=== PATIENT | female | born 1975 | race Caucasian/White ===

== ENCOUNTER → 2025-01-10 | Outpatient (CLI) | payer MEDICAID, SELFPAY ==
--- NOTE | 2025-01-10 10:45 | XR_ITS ---
Examination: Screening digital mammography, bilateral Computer aided detection 3-D breast Tomosynthesis, bilateral Date and time of exam: 01/10/2025, 10:36 AM Comparisons: January 04, 2019 Indications: Screening Technique: Nonmagnified MLO, CC views of the breasts to been obtained, reconstructed from 3-D Tomosynthesis images. R2 computer aided detection program utilized for evaluation of suspicious masses and/or abnormal calcifications. 3-D Tomosynthesis images obtained. Technologist: Findings: There are scattered areas of fibroglandular density. No evidence of abnormal masses or suspicious calcifications. Impression: BI-RADS category 1: Negative findings (within normal) Recommend 1 year follow-up mammogram
== END | disposition home or self-care (01) ==
PROVIDERS: PCP Physician Assistant; Referring Provider Physician Assistant; Visit Provider Physician Assistant
DX: Z12.31 Encounter for screening mammogram for malignant neoplasm of breast (principal); R92.313 Mammographic fatty tissue density, bilateral breasts
CPT/HCPCS: 77063; 77067

== ENCOUNTER 2025-01-17 00:01 | Emergency (ER) | payer MEDICAID, SELFPAY ==
[2025-01-17] VITALS (9 sets, daily range): BP systolic 103–129; BP diastolic 55–88; PULSE 74–105; RESP 16–20; TEMP 36.3–36.7; O2SAT 95–99; BMI 36.8
--- NOTE | 2025-01-17 00:43 | PD.EDSUICD ---
ED Psych RME/HPI General Chief Complaint: Suicidal Stated Complaint: SI Time Seen by Provider: 01/17/25 00:52 Source: patient and EMS Arrival date/time: 01/17/25 00:01 Mode of arrival: EMS Limitations: no limitations RME / HPI RME / HPI Narrative: Dr. Tan?s Main ED Evaluation: 49-year-old female was brought in by EMS from home for psychiatric evaluation due to suicidal ideation. The patient reports consuming alcohol tonight and ingesting approximately 6 tabs of 1mg tablets of Lorazepam. She endorses chronic psychiatric conditions managed with lithium and Prozac, though she states she did not take her prescribed medications today. She describes experiencing a ?bad day? and voluntarily called EMS for assistance to prevent self-harm and to be evaluated by crisis services. She denies any acute medical complaints at this time. Related Data Home Medications ?Medication ?Instructions ?Recorded ?Confirmed lithium carbonate 600 mg capsule 300 mg PO TID #0 caps 08/08/15 04/16/23 diphenhydramine HCl 50 mg capsule 100 mg PO HS 11/09/22 01/25/23 (Banophen) Held on 04/16/23. Instructions: Resume on 04/17/23. fluoxetine 20 mg capsule 20 mg PO BID 11/09/22 04/16/23 lorazepam 1 mg tablet 1 mg PO BID 11/09/22 04/16/23 Held on 04/16/23. Instructions: Resume on 04/17/23. MAY RESUME TOMORROW lumateperone 42 mg capsule 1 mg PO QDAY 11/09/22 04/16/23 (Caplyta) risperidone 1 mg tablet 1 mg PO HS 11/09/22 01/25/23 Allergies Allergy/AdvReac Type Severity Reaction Status Date / Time hydromorphone (From Dilaudid) Allergy Intermediate Nausea Verified 04/16/23 07:34 Review of Systems Review of Systems Systems Reviewed: All systems reviewed, normal except as documented Past Medical History Past Medical History NEUROLOGIC: Negative Neurological Disorders or Seizures CARDIAC: Positive Edema; Negative Cardiac Disorders, Congestive Heart Failure, Cellulitis, Hypertension or Varicose Veins RESPIRATORY: Negative Chronic Obstructive Pulmonary Disease (COPD), Pneumonia, Tuberculosis, Pulmonary Embolism or Sleep Apnea GASTROINTESTINAL: Positive Gastrointestinal Disorders, Hepatitis and Obesity GENITOURINARY: Negative Genitourinary Disorders or Renal Disease REPRODUCTIVE: Positive Previous Pregnancies MUSCULOSKELETAL: Negative Musculoskeletal Disorders ENDOCRINE: Negative Endocrine Disorders, Diabetes Mellitus Type 1 or Diabetes Mellitus Type 2 HEMATOLOGIC: Negative Blood Disorders PSYCHO/SOCIAL: Positive Schizophrenia, Bipolar Disorder, Depression and Anxiety OTHER HISTORY: Positive Hospitalization, Chicken Pox, Cancer and Cervical Cancer; Negative Autoimmune Disease, Shingles, Falls, Anesthesia Reactions, Chemotherapy, Radiation Therapy, MRSA, Measles or Mumps Family History FAMILY HISTORY: Positive Family Psychiatric Problems, Family Cardiac Disorders, Family Gastrointestinal Problems, Family Cancer and Family Surgery; Negative Family Respiratory Disorders or Family Anesthesia Reaction Surgical History SURGICAL: Positive Hysterectomy; Negative Pacemaker Social History SMOKING STATUS: Never smoker ED Exam General Limitations: Present no limitations General appearance: Present alert and in no apparent distress Head Head exam: Present atraumatic Eye Eye exam: Present normal appearance, PERRL and EOMI ENT ENT exam: Present normal exam, normal oropharynx and mucous membranes moist Neck Neck exam: Present normal inspection, full ROM and trachea midline Chest Chest inspection: Present normal inspection and symmetric chest wall rise Respiratory Respiratory exam: Present normal lung sounds bilaterally Cardiovascular Cardiovascular exam: Present regular rate, normal rhythm and normal heart sounds Abdominal Exam Abdominal exam: Present soft and normal bowel sounds Extremities Exam Extremities exam: Present normal inspection and full ROM Back Exam Back exam: Present normal inspection and full ROM Neurological Exam Neurological exam: Present alert, oriented X3 and CN II-XII intact Psychiatric Psychiatric exam: Present normal affect and normal mood Skin Skin exam: Present warm, dry, intact and normal color Course Quality Measures none Orders Category Date Time Status Acetaminophen Stat Lab 01/17/25 01:24 Completed Alcohol, Blood Medical Stat Lab 01/17/25 01:24 Completed Basic Metabolic Panel Stat Lab 01/17/25 01:24 Completed CBC Stat Lab 01/17/25 01:24 Completed Drug Screen,Urine Stat Lab 01/17/25 00:53 Ordered Free T4 (Free Thyroxine) Stat Lab 01/17/25 01:24 Completed HCG Qualitative,Urine Stat Lab 01/17/25 00:53 Ordered Redwood Stat Lab 01/17/25 01:24 Completed Salicylate Stat Lab 01/17/25 01:24 Completed TSH [Thyroid Stimulating Hormone] Stat Lab 01/17/25 01:24 Completed Vital Signs Vital signs: Vital Signs Temperature 97.5 F 01/17/25 00:29 Pulse Rate 74 01/17/25 00:29 Respiratory Rate 16 01/17/25 00:29 Blood Pressure 114/76 01/17/25 00:29 Pulse Oximetry (%) 96 01/17/25 00:29 Oxygen Delivery Method Room Air 01/17/25 00:29 Psych MDM Narrative MDM Narrative:: 0124: Medically cleared for crisis evaluation. Blood alc 164.4 0305: Patient re-evaluated. She is asleep, resting comfortably. Poison control was made aware of the patient's intentional ingestion of 6 x 1mg tablets of Lorazepam and consumption of alcohol. Recommendations include ED observation x 6 hours from arrival and labwork. 0600: Care signed out to Dr. Zuniga. Past medical, surgical, social and family history reviewed. Vitals and home medications reviewed. Results and treatment plan discussed. I will assume the care of the patient at this time and will follow the patient, pending mental health evaluation. Scribe Attestation: I, Kim Bridges, am scribing for and in the presence of Dr. Tan. Provider Notation: Although this document has been carefully reviewed, there may still be some phonetic and other typographical errors. These errors are purely grammatical due to imperfections in the software program and should not be construed in any way to compromise the substance of the patient's medical care during this visit. Patient data External records reviewed:: [facility] previous records and EMS form Clinical information provided by:: patient and EMS Social determinants that could affect healthcare access:: mental health Patient has the following chronic illnesses:: see PMH How is presenting disease/condition affected by chronic disease/condition?: uneffected by Evaluation data The following diagnostics were reviewed and interpreted by me:: lab results Lab and/or radiology exams considered but not ordered:: na Interpretation Summary: Blood alc level 164.4 Medications / Prescriptions Medications or Prescriptions considered but not ordered:: na Medication administrations:: as above Consultations Consultation(s) initiated? (list below): Yes Consultation #1 (Physician, Specialty, Details): Mental health Diagnosis Psych Differential Diagnosis: suicidal ideation, depression and acute anxiety Most likely diagnosis given after review of the tests above:: Suicidal ideation Admission Indicated Admission indicated?: not indicated Admission Request Was there a request for admission?: No Disposition Plan Disposition Plan: other (specify) (sign out pending mental health eval) Discharge Plan Prescriptions/Referrals Prescriptions/Med Rec: No Action lithium carbonate 600 MG capsule 300 mg PO TID Qty: 0 diphenhydramine HCl [Banophen] 50 mg capsule 100 mg PO HS Patient Comments: TAKE 2 CAPSULES BY MOUTH EVERY DAY AT NIGHT FOR SLEEP lorazepam 1 mg tablet 1 mg PO BID Patient Comments: TAKE 1 AND 1/2 TABLETS BY MOUTH 2 TIMES A DAY FOR ANXIETY FOR ANXIETY fluoxetine 20 mg capsule 20 mg PO BID risperidone 1 mg tablet 1 mg PO HS Patient Comments: TAKE 1 TABLET BY MOUTH AT BEDTIME Caplyta 42 mg capsule 1 mg PO QDAY Referrals: Shasha Davis PA-C [Primary Care Provider] - In 1 week Problem List Clinical Impression: Suicidal ideation Patient/Caregiver Discharge Instructions Print Language: Italian
--- NOTE | 2025-01-17 00:48 | PC.NURSE ---
Pt admitted to drinking tonight. Dr. Tan in room seeing pt.
--- NOTE | 2025-01-17 01:32 | PC.NURSE ---
CALLED POISON CONTROL AND INFORMED ABOUT PT TAKING 6MG ATIVAN AT 2315, THERE IS A ANTIDOTE BUT NOT RECOMMENDED, RECOMMENDED TO DO BLOOD TEST AND OBSERVE PT X 6 HOURS.
[2025-01-17 01:47] LABS: Basophils % (Auto) 0 % (0-2.5); Eosinophils # (Auto) 0.1 Thou/mm3 (0.0-0.5); Eosinophils % (Auto) 2 % (0-10); Hematocrit 38.2 % (36.0-46.0); Hemoglobin 13.3 g/dL (12.0-16.0); Immature Granulocytes % (Auto) 0 % (0-0); Immature Granulocytes Auto 0.02 Thou/mm3 (0.00-0.00); Lymphocytes # (Auto) 1.7 Thou/mm3 (1.0-4.8); Lymphocytes % (Auto) 32 % (10-50); Mean Corpuscular HGB Conc 34.8 g/dl (31.0-37.0); Mean Corpuscular Hemoglobin 33.3 pg (25.0-35.0); Mean Corpuscular Volume 96 fL (80-100); Monocytes # (Auto) 0.5 Thou/mm3 (0.0-0.8); Monocytes % (Auto) 9 % (0-12); Neutrophils % (Auto) 57 % (37-80); Nucleated Red Blood Cell % 0 /100 WBC (0); Platelet Count 200 Thou/mm3 (140-440); RDW Standard Deviation 43.3 fL (36.4-46.3); Red Blood Count 3.99 Miln/mm3 (4.00-5.20); White Blood Count 5.4 Thou/mm3 (3.6-11.0)
[2025-01-17 02:19] LABS: Lithium < 0.10 mEq/L (1.00-1.20)
[2025-01-17 02:51] LABS: Acetaminophen < 2.0 mcg/mL (10.0-20.0); Alcohol, Blood Medical 164.4 mg/dL (0-10.0); Anion Gap 10 (7-16); BUN/Creatinine Ratio 9 Ratio (12-20); Blood Urea Nitrogen 8 mg/dL (9-23); Calcium 9.5 mg/dL (8.3-10.6); Carbon Dioxide 23.7 mMol/L (20.0-31.0); Chloride 111 mMol/L (98-107); Creatinine (Component) 0.9 mg/dL (0.6-1.3); Free T4 (Free Thyroxine) 1.14 ng/dL (0.89-1.76); Glucose 90 mg/dL (74-106); Osmolality,Calculated 287 (275-295); Potassium 3.6 mMol/L (3.4-5.1); Salicylate < 3.0 mg/dL; Sodium 145 mMol/L (136-145); eGFR > 60 See Note
--- NOTE | 2025-01-17 04:42 | PC.NURSE ---
Sleeping, aroused easily, informed that we need to collect urine specimen. Pt refused to get up, stated that she dosen't have to go now.
--- NOTE | 2025-01-17 07:15 | PC.NURSE ---
Received report from Serafin MONTOYA and assumed care of patient. Patient sleeping in bed at this time with no signs of distress.
--- NOTE | 2025-01-17 08:59 | PC.NURSE ---
Received call from poison control and updated with lab information with exception of urine tox which is still pending. PC said that they would call back for further updates.
[2025-01-17 09:35] LABS: HCG Qualitative,Urine Negative
[2025-01-17 09:37] LABS: Amphetamine/Methamp Scrn,U Positive (Negative); Barbiturate Screen,Urine Negative (Negative); Benzodiazepines Screen,Urine Negative (Negative); Benzoylecgonine Screen, Ur Negative (Negative); Fentanyl Screen,Urine Negative (Negative); Opiate Screen,Urine Negative (Negative); THC Screen,Urine Negative (Negative)
--- NOTE | 2025-01-17 10:23 | PC.CC ---
Pt Fielder, Nancy Peter, is a 49-year-old female brought in to ED by EMS for SI overdose attempt. Mechanical Insulator met with pt to complete psychological assessment. Pt presents disheveled but was easily engaged and able to sit up on gurney and make direct eye contact as encounter progressed. Pt is noted to be alert and oriented to person, current place and year. Pt reports hx of mental health and reports being prescribed MH medications. Pt reports is on and off with compliance with medication for the past 3-4 years. Pt endorses previous 5150 holds- x2 years ago. Pt placed in ED 18. Pt reports living with daughter Joann Cramer [phone] [place], [place] [id number]. ED Watchguard encountered Pt for mental health evaluation. ED Watchguard used the following interventions: empathy, unconditional positive regard, Socratic dialogue including clarifying and probing questions. Pt was receptive and was able to disclosed she had a difficult day, day prior and took one to many pills. ED Watchguard used C-SSRS to support process and assessed for SI/HI, self-harming behaviors, method, access to lethal means, plan/intent. Pt was responsive to mental health evaluation and denied plan/intent for SI/HI. Pt denied hx of non-suicidal self-injury. Pt states she does not want to and she just wants to return back to her daughter and will like to receive MH support. ED Watchguard consulted with chick room supervisor Yuni Gonzalez and it was agreed to safety plan with client due to client denying SI/HI with no plan/intent. Pt was engaged and assessed as reliable in participation in safety planning and was in agreement. Pt was able to review positive coping skills of taking to friends and being with daughter.
--- NOTE | 2025-01-17 10:33 | PD.EDADDENDU ---
Emergency Room Addendum Addendum Narrative: 0600: Care assumed from Dr. Tan, the previous shift emergency physician. Past medical, surgical, social and family history reviewed. Vitals and home medications reviewed. I will assume the care of the patient at this time, pending medical clearance for mental health evaluation. Please refer to the emergency department record for history and examination from initial visit.?The following addendum documentation note is intended to reflect any pending information, findings, or radiology results not included in the patient?s initial chart. Patient has been medically cleared for mental health evaluation. 1030: Patient has been evaluated by mental health team. State at this time patient is no longer suicidal and is requesting to go home. State they were able to safety plan with family and the patient was provided with appropriate resources. Patient has an appointment scheduled with psychiatrist Dr. Beebe on 01/30/2025 at 09:00AM. Will DC home. DISPOSITION: Home DIAGNOSIS: Suicidal ideation, acute alcohol intoxication, amphetamine abuse
--- NOTE | 2025-01-17 10:37 | PC.CC ---
Senior Account Manager spoke with Loan Blankenship and daughter Joann Mccabe and both agreed to be apart of Pt safety plan. Daughter Joann agreed to support Pt with confirming lucinda with psychiatry with Dr. Beebe at [facility].
--- NOTE | 2025-01-17 10:42 | PC.CC ---
Political Director received confirmation from daughter Joann and she will be providing transport for Pt.
--- NOTE | 2025-01-17 10:49 | PC.CC ---
Tile Molder arranged appointment with Dr. Beebe [facility]- January 30, 2025 at 9:00am.
--- NOTE | 2025-01-17 11:58 | PC.NURSE ---
[facility] poison conrol called for update on pt and to ask about the tox screen. Informed pt discharged at 1100 and given results of tox screen
== END 2025-01-17 11:00 | disposition home or self-care (01) ==
PROVIDERS: Emergency Provider Emergency Medicine; PCP Physician Assistant
DX: R45.851 Suicidal ideations (principal); F10.129 Alcohol abuse with intoxication, unspecified; F15.10 Other stimulant abuse, uncomplicated
CPT/HCPCS: 36415; 80048; 80178; 80307; 80320; 80329; 81025; 84439; 84443; 85025; 90839; 96127; 99284; G0480

== ENCOUNTER → 2025-05-01 | Outpatient (CLI) | payer MEDICAID, SELFPAY ==
--- NOTE | 2025-05-01 12:00 | XR_ITS ---
Examination: MRI brain without intravenous contrast. Date and time of exam: May 01, 2025 1228 hours Compared to mammograms dating to October 11, 2007 INDICATIONS: History head trauma 20 years ago, increasing memory loss frontal headaches the last 2 years Technique: Multiple axial and sagittal images of the brain obtained. Siemens high-resolution 1.5 Jeni short bore scanners utilized. Sagittal sections, T1-weighted, TR 500, TE 14, are performed. Axial sections proton-density and T2-weighted have been obtained. Inversion recovery axial images, TR 9, 260, TE 111, TI 2500. Diffusion weighted images, axial sections, TR 4800, TE 128, B value 1000 Axial sections, ADC map, TR 4800, TE 128 Findings: All the images are degraded by patient motion Ventricles are not enlarged No mass effect. Diffusion images demonstrate no focus of restricted diffusion Mild increased white matter change on the FLAIR images IMPRESSION: Negative for acute hemorrhage mass effect or midline shift No acute infarct
== END | disposition home or self-care (01) ==
LOC: SMRI 11:33
PROVIDERS: PCP Physician Assistant; Referring Provider Psychiatry & Neurology Neurology; Visit Provider Psychiatry & Neurology Neurology
DX: R41.3 Other amnesia (principal)
CPT/HCPCS: 70551